=== PATIENT | male | born 1990 | race Two or more races ===

== ENCOUNTER 2020-06-14 08:19 | Emergency (ER) | payer SELFPAY ==
[~2020-06-14] VITALS: Ht 180.3 cm; Wt 72.6 kg
--- NOTE | 2020-06-14 08:31 | Emergency Room Report ---
History of Present Illness General Chief Complaint: Skin Rash/Abscess Present Illness HPI 29-year-old male here for medical evaluation. Patient is under arrest and wedding day coordinator at the bedside say that the saw the patient freebasing heroin and "he was surrounded by needles when we found him." Patient is being evaluated because he has evidence of abscesses on his right hand and an abrasion on his right knee with some surrounding erythema. Patient is on aware of how long these have been there. When asked the patient if he used drugs or alcohol tonight he says "I do not know, I used to inject but that was like 4 months ago. " However the officers at the bedside said that they saw the patient using a needle. Patient had a bandage over his right knee and he admits that when the bandage was taken off he was "surprised" and swallowed a small plastic bag of crack cocaine that he was hiding in his mouth. This was about 20 minutes prior to coming to the emergency department. He says that the plastic bag was small in size and was open. Says that he smokes crack regularly. Denies smoking crack tonight. No headaches, vision changes, fevers, chills, chest pain, palpitations, shortness of breath, back pain, abdominal pain, nausea, vomiting, diarrhea, dysuria, diaphoresis. 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 Physical Exam Vital Signs Date Time Temp Pulse Resp B/P (MAP) Pulse Ox O2 Delivery O2 Flow Rate FiO2 06/14/20 08:21 98.2 84 17 98/65 (76) 99 Room Air Sp02 EP Interpretation: reviewed, normal General Appearance: no apparent distress, alert, GCS 15, non-toxic Head: normocephalic, atraumatic Eyes: bilateral eye normal inspection, bilateral eye PERRL ENT: hearing grossly normal, normal pharynx, no angioedema, normal voice Neck: full range of motion, supple/symm/no masses Respiratory: chest non-tender, lungs clear, normal breath sounds, speaking full sentences Cardiovascular #1: regular rate, rhythm, no edema Cardiovascular #2: 2+ carotid (R), 2+ carotid (L), 2+ radial (R), 2+ radial (L) , 2+ dorsalis pedis (R), 2+ dorsalis pedis (L) Gastrointestinal: normal bowel sounds, non tender, soft, non-distended, no guarding, no rebound Rectal: deferred Genitourinary: normal inspection, no CVA tenderness Musculoskeletal: back normal, normal range of motion, calf tenderness, gait/ station normal, other - 1 cm abscess actively draining pus extensor surface of right hand just proximal to the thumb. 1 cm mild abrasion to the right knee with 2 cm of surrounding warm erythema Neurologic: alert, motor strength/tone normal, sensory intact, responsive, speech normal Psychiatric: memory normal, mood/affect normal, no suicidal/homicidal ideation Lymphatic: no adenopathy Medical Decision Making Diagnostic Impression: Primary Impression: Abscess Additional Impression: Cellulitis ER Course Procedure: XRAY Abdomen 1v EXAM: XR Abdomen, 1 Views CLINICAL HISTORY: FB TECHNIQUE: Frontal view of the abdomen/pelvis . COMPARISON: No relevant prior studies available. FINDINGS: Gastrointestinal tract: Nonspecific gassy small bowel. Moderate stool and gas in the colon. Focal narrowing at the proximal descending colon. No dilation. Bones/joints: Unremarkable. Vasculature: Small phleboliths in the pelvis. IMPRESSION: 1. No radiopaque body. 2. Nonspecific gassy small bowel. Moderate stool and gas in the colon. Focal narrowing at the proximal descending colon. May be ileus or low- grade obstruction. Procedure: XRAY Chest 1v EXAM: XR Chest, 1 View CLINICAL HISTORY: FB TECHNIQUE: Frontal view of the chest. COMPARISON: No relevant prior studies available. FINDINGS: Lungs: Unremarkable. No consolidation. Pleural space: Unremarkable. No pneumothorax. Heart: Unremarkable. No cardiomegaly. Mediastinum: Unremarkable. Bones/joints: Unremarkable. Upper abdomen: Gaseous distended loops of bowel in the left upper quadrant. IMPRESSION: 1. No radiopaque foreign body. 2. No acute process in the chest. 29-year-old male here for evaluation for abscess in his right hand and abrasion on his right knee. Patient was found by police officers using IV heroin. Patient came to the emergency department he admitted to swallowing a small bag with to crack rocks. Chest x-ray and abdominal x-ray did not reveal any radiopaque foreign bodies. Results of these tests were otherwise negative. He was observed for 2 hours and did not develop any chest pain or evidence of intoxication or delirium. Given prescription for Bactrim. Will follow-up with primary care. Discharged to detention. Last Vital Signs Date Time Temp Pulse Resp B/P (MAP) Pulse Ox O2 Delivery O2 Flow Rate FiO2 06/14/20 08:21 98.2 84 17 98/65 (76) 99 Room Air Scripts Trimethoprim/Sulfamethoxazole 160/800* (BACTRIM DS TABLET*) 1 Each Tablet 1 TAB ORAL Q12H, #14 TAB 0 Refills Prov: Henrry Caballero M.D. 06/14/20 Henrry Caballero M.D. Jun 14, 2020 08:31
[2020-06-14 08:37] VITALS: BP 98/65
[2020-06-14] MEDS ORDERED: Bacitracin Oint UD TOPIC ONE (08:45)
--- NOTE | 2020-06-14 09:40 | Diagnostic Imaging Report ---
EXAM: XR Abdomen, 1 Views CLINICAL HISTORY: FB TECHNIQUE: Frontal view of the abdomen/pelvis . COMPARISON: No relevant prior studies available. FINDINGS: Gastrointestinal tract: Nonspecific gassy small bowel. Moderate stool and gas in the colon. Focal narrowing at the proximal descending colon. No dilation. Bones/joints: Unremarkable. Vasculature: Small phleboliths in the pelvis. IMPRESSION: 1. No radiopaque body. 2. Nonspecific gassy small bowel. Moderate stool and gas in the colon. Focal narrowing at the proximal descending colon. May be ileus or low- grade obstruction.
--- NOTE | 2020-06-14 09:41 | Diagnostic Imaging Report ---
EXAM: XR Chest, 1 View CLINICAL HISTORY: FB TECHNIQUE: Frontal view of the chest. COMPARISON: No relevant prior studies available. FINDINGS: Lungs: Unremarkable. No consolidation. Pleural space: Unremarkable. No pneumothorax. Heart: Unremarkable. No cardiomegaly. Mediastinum: Unremarkable. Bones/joints: Unremarkable. Upper abdomen: Gaseous distended loops of bowel in the left upper quadrant. IMPRESSION: 1. No radiopaque foreign body. 2. No acute process in the chest.
[2020-06-14 09:51] VITALS: BP 120/80
[2020-06-14] MEDS ORDERED: BACTRIM DS TAB1 EAC1 ORAL (10:37)
== END 2020-06-14 10:42 | disposition home or self-care (01) ==
LOC: EMR 08:38
DX: L02.511 Cutaneous abscess of right hand (principal); L03.90 Cellulitis, unspecified; S80.211A Abrasion, right knee, initial encounter; X58.XXXA Exposure to other specified factors, initial encounter; Y92.9 Unspecified place or not applicable; I87.8 Other specified disorders of veins; F11.90 Opioid use, unspecified, uncomplicated
CPT/HCPCS: 71045; 74018; 99284